=== PATIENT | male | born 1950 | race Caucasian/White ===

== ENCOUNTER 2023-06-20 14:32 | Inpatient (IN) | payer MEDICARE, OTHER ==
[~2023-06-20] VITALS: Ht 175.3 cm; Wt 84.4 kg
[2023-06-20 18:41] VITALS: BP 143/69; TEMP 98; O2SAT 93
[2023-06-20 21:33] VITALS: BP 144/60; TEMP 98.6; O2SAT 99
[2023-06-20 21:36] VITALS: BP 144/60; TEMP 98.6
[2023-06-20] MEDS ORDERED: METO75TA PO (22:25)
[2023-06-20] MEDS ORDERED: FERR325T28 PO (22:25)
[2023-06-20] MEDS ORDERED: DAPA10TA PO (22:25)
[2023-06-20] MEDS ORDERED: [UNRECOGNIZED DRUG - CODE] PO (22:25)
[2023-06-20] MEDS ORDERED: ATOR40TA PO (22:25)
[2023-06-20] MEDS ORDERED: OXYC5CAP18 PO (22:25)
[2023-06-20] MEDS ORDERED: GABA300C PO (22:25)
[2023-06-20] MEDS ORDERED: METF-495 PO (22:25)
[2023-06-20] MEDS ORDERED: CLOP75TA15 PO (22:25)
[2023-06-20] MEDS ORDERED: ASPI81TA31 PO (22:25)
[2023-06-20] MEDS ORDERED: ENOX40DI SQ (22:25)
[2023-06-20] MEDS ORDERED: SITA100T PO (22:25)
[2023-06-20] MEDS ORDERED: CYCL5TAB PO (22:25)
[2023-06-21] MEDS: OXYCODONE/APAP 5-325 MG TABLET PO PRN (01:18)
[2023-06-21 05:44] VITALS: BP 124/66; TEMP 97.8; O2SAT 99
[2023-06-21 05:45] VITALS: BP 124/66; TEMP 97.8; O2SAT 99
[2023-06-21 07:44] VITALS: BP 148/65; TEMP 98.2; O2SAT 94
[2023-06-21] MEDS ORDERED: Medication Not On Formulary EA (Oxycodone Hcl 1 CAP) PO PRN (08:45)
[2023-06-21] MEDS ORDERED: OLMESARTAN MED PO SCH (09:00)
[2023-06-21] MEDS ORDERED: OXYCODONE HCL 5 MG TABLET PO PRN (09:00)
[2023-06-21] MEDS ORDERED: AMLODIPINE BES PO SCH (09:00)
[2023-06-21] MEDS ORDERED: Medication Not On Formulary EA (Cyclobenzaprine Hcl 5 MG) PO SCH (09:00)
[2023-06-21] MEDS ORDERED: SITAGLIPTIN PHOSPHATE PO SCH (09:00)
[2023-06-21] MEDS ORDERED: [UNRECOGNIZED DRUG - OTHER] PO SCH (09:00)
[2023-06-21] MEDS: GABAPENTIN 300 MG CAPSULE PO SCH ×3 (09:35→17:17)
[2023-06-21] MEDS: METOPROLOL TARTRATE 25 MG TABLET PO SCH ×2 (09:35→17:17)
[2023-06-21] MEDS: CYCLOBENZAPRINE HCL 10 MG TABLET PO SCH ×3 (09:36→17:13)
[2023-06-21] MEDS: DAPAGLIFLOZIN PROPANEDIOL 5 MG TABLET PO SCH (09:36)
[2023-06-21] MEDS ORDERED: AMLO1CAP PO (10:14)
[2023-06-21] MEDS: BENAZEPRIL HCL 20 MG TABLET PO SCH (12:38)
[2023-06-21] MEDS: FERROUS SULFATE 325 MG TABEC PO SCH ×2 (12:38→17:13)
[2023-06-21] MEDS: AMLODIPINE 10 MG TABLET PO SCH (12:38)
[2023-06-21] MEDS: ENOXAPARIN SODIUM 30 MG/0.3 ML DISP.SYRIN SQ SCH ×2 (12:39→21:08)
[2023-06-21] MEDS ORDERED: DEXTROSE 50% 50 ML DISP.SYRIN IV PRN (15:15)
[2023-06-21 15:46] VITALS: BP 126/59; TEMP 98.8; O2SAT 94
[2023-06-21] MEDS: CLOPIDOGREL 75 MG TABLET PO SCH (17:13)
[2023-06-21] MEDS: ASPIRIN 81 MG TAB.CHEW PO SCH (17:13)
[2023-06-21] MEDS: ATORVASTATIN 40 MG TABLET PO SCH (17:17)
[2023-06-21] MEDS: INSULIN REGULAR, HUMAN 300 UNIT/3 ML VIAL SQ PRN (17:18)
[2023-06-21] MEDS: BLOOD SUGAR DIAGNOSTIC 1 EACH STRIP VI SCH ×2 (17:20→21:06)
[2023-06-21 20:00] VITALS: BP 128/62; TEMP 98.6
[2023-06-22 05:34] VITALS: BP 148/66; TEMP 98.8; O2SAT 93
[2023-06-22] MEDS: BLOOD SUGAR DIAGNOSTIC 1 EACH STRIP VI SCH ×4 (06:49→20:16)
[2023-06-22 08:04] VITALS: BP 142/67; TEMP 98.7; O2SAT 99
[2023-06-22] MEDS: ENOXAPARIN SODIUM 30 MG/0.3 ML DISP.SYRIN SQ SCH ×2 (08:36→20:21)
[2023-06-22] MEDS: CYCLOBENZAPRINE HCL 10 MG TABLET PO SCH ×3 (08:36→17:32)
[2023-06-22] MEDS: GABAPENTIN 300 MG CAPSULE PO SCH ×3 (08:36→17:32)
[2023-06-22] MEDS: FERROUS SULFATE 325 MG TABEC PO SCH ×3 (08:37→17:32)
[2023-06-22] MEDS: METFORMIN XR 500 MG TAB.SR.24H PO SCH (08:37)
[2023-06-22] MEDS: DAPAGLIFLOZIN PROPANEDIOL 5 MG TABLET PO SCH (08:37)
[2023-06-22] MEDS: METOPROLOL TARTRATE 25 MG TABLET PO SCH ×2 (08:47→17:37)
[2023-06-22] MEDS: BENAZEPRIL HCL 20 MG TABLET PO SCH (08:48)
[2023-06-22] MEDS: AMLODIPINE 10 MG TABLET PO SCH (08:49)
[2023-06-22] MEDS: GLUCERNA SHAKE 237 ML CAN PO SCH (09:00)
[2023-06-22 11:43] VITALS: BP 121/61; TEMP 98.7; O2SAT 20
[2023-06-22] MEDS: INSULIN REGULAR, HUMAN 300 UNIT/3 ML VIAL SQ PRN ×3 (12:54→20:17)
[2023-06-22 15:30] VITALS: BP 115/71; TEMP 98.4; O2SAT 93
[2023-06-22] MEDS: ATORVASTATIN 40 MG TABLET PO SCH (17:32)
[2023-06-22] MEDS: CLOPIDOGREL 75 MG TABLET PO SCH (17:32)
[2023-06-22] MEDS: ASPIRIN 81 MG TAB.CHEW PO SCH (17:32)
[2023-06-22 22:47] VITALS: BP 125/61; TEMP 98.2; O2SAT 96
[2023-06-23 05:04] VITALS: BP 137/54; TEMP 97.8; O2SAT 98
[2023-06-23] MEDS: BLOOD SUGAR DIAGNOSTIC 1 EACH STRIP VI SCH ×4 (06:17→21:00)
[2023-06-23 07:46] VITALS: BP 131/62; TEMP 98; O2SAT 96
[2023-06-23 08:00] VITALS: BP 121/79; TEMP 98.4; O2SAT 98
[2023-06-23] MEDS: METFORMIN XR 500 MG TAB.SR.24H PO SCH (08:51)
[2023-06-23] MEDS: FERROUS SULFATE 325 MG TABEC PO SCH ×3 (08:51→17:16)
[2023-06-23] MEDS: JANUVIA 100 MG PO SCH (08:58)
[2023-06-23] MEDS: AMLODIPINE 10 MG TABLET PO SCH (08:58)
[2023-06-23] MEDS: CYCLOBENZAPRINE HCL 10 MG TABLET PO SCH ×3 (08:59→17:16)
[2023-06-23] MEDS: GABAPENTIN 300 MG CAPSULE PO SCH ×3 (09:00→17:17)
[2023-06-23] MEDS: METOPROLOL TARTRATE 25 MG TABLET PO SCH ×2 (09:01→17:16)
[2023-06-23] MEDS: GLUCERNA SHAKE 237 ML CAN PO SCH (09:01)
[2023-06-23] MEDS: BENAZEPRIL HCL 20 MG TABLET PO SCH (09:01)
[2023-06-23] MEDS: DAPAGLIFLOZIN PROPANEDIOL 5 MG TABLET PO SCH (09:01)
[2023-06-23] MEDS: ENOXAPARIN SODIUM 30 MG/0.3 ML DISP.SYRIN SQ SCH ×2 (09:35→22:14)
[2023-06-23 15:22] VITALS: BP 128/75; TEMP 98.2; O2SAT 96
[2023-06-23] MEDS: CLOPIDOGREL 75 MG TABLET PO SCH (17:17)
[2023-06-23] MEDS: ASPIRIN 81 MG TAB.CHEW PO SCH (17:17)
[2023-06-23] MEDS: ATORVASTATIN 40 MG TABLET PO SCH (17:17)
[2023-06-23 20:31] VITALS: BP 135/58; TEMP 98; O2SAT 93
[2023-06-24 04:00] VITALS: BP 130/57; TEMP 98.2; O2SAT 93
[2023-06-24] MEDS: BLOOD SUGAR DIAGNOSTIC 1 EACH STRIP VI SCH ×4 (07:32→21:14)
[2023-06-24 08:00] VITALS: BP 148/71; TEMP 97.7; O2SAT 96
[2023-06-24] MEDS: FERROUS SULFATE 325 MG TABEC PO SCH ×3 (08:54→17:33)
[2023-06-24] MEDS: METOPROLOL TARTRATE 25 MG TABLET PO SCH ×2 (08:56→17:36)
[2023-06-24] MEDS: BENAZEPRIL HCL 20 MG TABLET PO SCH (08:57)
[2023-06-24] MEDS: GABAPENTIN 300 MG CAPSULE PO SCH ×3 (08:57→17:36)
[2023-06-24] MEDS: AMLODIPINE 10 MG TABLET PO SCH (08:57)
[2023-06-24] MEDS: CYCLOBENZAPRINE HCL 10 MG TABLET PO SCH ×3 (08:58→17:33)
[2023-06-24] MEDS: INSULIN REGULAR, HUMAN 300 UNIT/3 ML VIAL SQ PRN ×3 (08:59→21:14)
[2023-06-24] MEDS: ENOXAPARIN SODIUM 30 MG/0.3 ML DISP.SYRIN SQ SCH (09:00)
[2023-06-24] MEDS: METFORMIN XR 500 MG TAB.SR.24H PO SCH (09:02)
[2023-06-24] MEDS: DAPAGLIFLOZIN PROPANEDIOL 5 MG TABLET PO SCH (09:03)
[2023-06-24] MEDS: GLUCERNA SHAKE 237 ML CAN PO SCH (09:04)
[2023-06-24] MEDS: JANUVIA 100 MG PO SCH (09:05)
[2023-06-24 11:29] VITALS: BP 129/56; TEMP 98.8; O2SAT 97
[2023-06-24 15:34] VITALS: BP 109/47; TEMP 98.5; O2SAT 95
[2023-06-24] MEDS: ATORVASTATIN 40 MG TABLET PO SCH (17:33)
[2023-06-24] MEDS: CLOPIDOGREL 75 MG TABLET PO SCH (17:33)
[2023-06-24] MEDS: ASPIRIN 81 MG TAB.CHEW PO SCH (17:33)
[2023-06-24 20:34] VITALS: BP 111/82; TEMP 98.1; O2SAT 95
[2023-06-25 04:18] VITALS: BP 107/49; TEMP 98.2; O2SAT 93
[2023-06-25] MEDS: BLOOD SUGAR DIAGNOSTIC 1 EACH STRIP VI SCH ×4 (06:23→20:38)
[2023-06-25] MEDS: INSULIN REGULAR, HUMAN 300 UNIT/3 ML VIAL SQ PRN ×4 (07:21→20:42)
[2023-06-25 07:22] VITALS: BP 119/60; TEMP 98; O2SAT 98
[2023-06-25] MEDS: GABAPENTIN 300 MG CAPSULE PO SCH ×3 (08:03→16:10)
[2023-06-25] MEDS: METOPROLOL TARTRATE 25 MG TABLET PO SCH ×2 (08:03→16:10)
[2023-06-25] MEDS: CYCLOBENZAPRINE HCL 10 MG TABLET PO SCH ×3 (08:03→16:10)
[2023-06-25] MEDS: FERROUS SULFATE 325 MG TABEC PO SCH ×3 (08:03→16:10)
[2023-06-25] MEDS: BENAZEPRIL HCL 20 MG TABLET PO SCH (08:03)
[2023-06-25] MEDS: METFORMIN XR 500 MG TAB.SR.24H PO SCH (08:04)
[2023-06-25] MEDS: JANUVIA 100 MG PO SCH (08:04)
[2023-06-25] MEDS: DAPAGLIFLOZIN PROPANEDIOL 5 MG TABLET PO SCH (08:04)
[2023-06-25] MEDS: AMLODIPINE 10 MG TABLET PO SCH (08:08)
[2023-06-25] MEDS: ENOXAPARIN SODIUM 40 MG/0.4 ML DISP.SYRIN SQ SCH (08:10)
[2023-06-25] MEDS: GLUCERNA SHAKE 237 ML CAN PO SCH (09:00)
[2023-06-25 15:58] VITALS: BP 121/52; TEMP 98.8; O2SAT 96
[2023-06-25] MEDS: ASPIRIN 81 MG TAB.CHEW PO SCH (17:03)
[2023-06-25] MEDS: ATORVASTATIN 40 MG TABLET PO SCH (17:05)
[2023-06-25] MEDS: CLOPIDOGREL 75 MG TABLET PO SCH (17:05)
[2023-06-25 20:47] VITALS: BP 125/52; TEMP 98.3
[2023-06-26 05:45] VITALS: BP 140/68; TEMP 98.4; O2SAT 94
[2023-06-26] MEDS: BLOOD SUGAR DIAGNOSTIC 1 EACH STRIP VI SCH ×4 (06:40→20:38)
[2023-06-26 07:37] LABS: CALCIUM 8.9 mg/dL (8.5-10.1); CREATININE 0.8 mg/dL (0.6-1.3); MAGNESIUM 1.9 mg/dL (1.8-2.4); PHOSPHOROUS 3.5 mg/dL (2.5-4.9); POTASSIUM 3.5 mmol/L (3.5-5.1)
[2023-06-26 07:43] VITALS: BP 136/64; TEMP 98.7; O2SAT 94
[2023-06-26 07:50] LABS: BASOPHILS # (AUTO) 0.1 K/UL (0.0-0.2); DIFFERENTIAL COMMENT 0; EOSINOPHILS # (AUTO) 0.3 K/uL (0.0-0.7); EOSINOPHILS % (AUTO) 3.2 % (0.0-7.0); HEMATOCRIT 29.4 % (36.7-47.1); HEMOGLOBIN 10.1 g/dL (12.5-16.3); LYMPHOCYTES % (AUTO) 21.4 % (20.5-51.5); MEAN CORPUSCULAR HEMOGLOBIN 30.8 uug (23.8-33.4); MEAN CORPUSCULAR HGB CONC 34 g/dL (32.5-36.3); MEAN CORPUSCULAR VOLUME 89.9 fL (73.0-96.2); MONOCYTES # (AUTO) 0.8 K/uL (0.1-1.30); MONOCYTES % (AUTO) 8.6 % (0.0-11.0); NEUTROPHILS # (AUTO) 6.2 K/uL (1.8-8.9); NEUTROPHILS % (AUTO) 65.8 % (38.5-71.5); PLATELET COUNT (AUTO) 512 K/uL (152-348); RED BLOOD CELL COUNT(AUTO) 3.27 MIL/uL (4.06-5.63); RED CELL DISTRIBUTION WIDTH 15.4 % (12.1-16.2); WHITE BLOOD COUNT (AUTO) 9.4 K/uL (3.6-10.2)
[2023-06-26] MEDS: GABAPENTIN 300 MG CAPSULE PO SCH ×3 (09:05→17:44)
[2023-06-26] MEDS: BENAZEPRIL HCL 20 MG TABLET PO SCH (09:05)
[2023-06-26] MEDS: METOPROLOL TARTRATE 25 MG TABLET PO SCH ×2 (09:05→17:44)
[2023-06-26] MEDS: FERROUS SULFATE 325 MG TABEC PO SCH ×3 (09:05→17:44)
[2023-06-26] MEDS: CYCLOBENZAPRINE HCL 10 MG TABLET PO SCH ×3 (09:06→17:45)
[2023-06-26] MEDS: AMLODIPINE 10 MG TABLET PO SCH (09:06)
[2023-06-26] MEDS: DAPAGLIFLOZIN PROPANEDIOL 5 MG TABLET PO SCH (09:07)
[2023-06-26] MEDS: JANUVIA 100 MG PO SCH (09:07)
[2023-06-26] MEDS: METFORMIN XR 500 MG TAB.SR.24H PO SCH (09:07)
[2023-06-26] MEDS: GLUCERNA SHAKE 237 ML CAN PO SCH (09:08)
[2023-06-26] MEDS: ENOXAPARIN SODIUM 40 MG/0.4 ML DISP.SYRIN SQ SCH (09:16)
[2023-06-26] MEDS: INSULIN REGULAR, HUMAN 300 UNIT/3 ML VIAL SQ PRN ×3 (12:08→20:38)
[2023-06-26 16:00] VITALS: BP 111/43; TEMP 98.5; O2SAT 92
[2023-06-26] MEDS: CLOPIDOGREL 75 MG TABLET PO SCH (17:44)
[2023-06-26] MEDS: ATORVASTATIN 40 MG TABLET PO SCH (17:44)
[2023-06-26] MEDS: ASPIRIN 81 MG TAB.CHEW PO SCH (17:44)
[2023-06-26 20:00] VITALS: BP 110/59; TEMP 98.5; O2SAT 95
[2023-06-27 04:19] VITALS: BP 124/60; TEMP 98.3; O2SAT 94
[2023-06-27] MEDS: BLOOD SUGAR DIAGNOSTIC 1 EACH STRIP VI SCH ×4 (06:30→20:54)
[2023-06-27 07:46] VITALS: BP 123/60; TEMP 98.7; O2SAT 94
[2023-06-27] MEDS: INSULIN REGULAR, HUMAN 300 UNIT/3 ML VIAL SQ PRN ×4 (07:52→20:56)
[2023-06-27] MEDS: FERROUS SULFATE 325 MG TABEC PO SCH ×3 (08:48→16:34)
[2023-06-27] MEDS: OXYCODONE/APAP 5-325 MG TABLET PO PRN (08:48)
[2023-06-27] MEDS: GABAPENTIN 300 MG CAPSULE PO SCH ×3 (08:48→16:34)
[2023-06-27] MEDS: GLUCERNA SHAKE 237 ML CAN PO SCH (08:49)
[2023-06-27] MEDS: AMLODIPINE 10 MG TABLET PO SCH (08:51)
[2023-06-27] MEDS: METOPROLOL TARTRATE 25 MG TABLET PO SCH ×2 (08:51→16:43)
[2023-06-27] MEDS: ENOXAPARIN SODIUM 40 MG/0.4 ML DISP.SYRIN SQ SCH (08:51)
[2023-06-27] MEDS: BENAZEPRIL HCL 20 MG TABLET PO SCH (08:52)
[2023-06-27] MEDS: CYCLOBENZAPRINE HCL 10 MG TABLET PO SCH ×3 (08:55→16:34)
[2023-06-27] MEDS: JANUVIA 100 MG PO SCH (08:55)
[2023-06-27] MEDS: METFORMIN XR 500 MG TAB.SR.24H PO SCH (08:55)
[2023-06-27] MEDS: DAPAGLIFLOZIN PROPANEDIOL 5 MG TABLET PO SCH (08:57)
[2023-06-27 15:57] VITALS: BP 94/47; TEMP 98.2; O2SAT 95
[2023-06-27] MEDS: ATORVASTATIN 40 MG TABLET PO SCH (16:40)
[2023-06-27] MEDS: CLOPIDOGREL 75 MG TABLET PO SCH (16:40)
[2023-06-27] MEDS: ASPIRIN 81 MG TAB.CHEW PO SCH (16:40)
[2023-06-27 19:50] VITALS: BP_SYST 108; BP_SYST 133; BP_DIAS 48; BP_DIAS 60; TEMP 98.1; TEMP 98.7; O2SAT 97; O2SAT 98
[2023-06-28 04:00] VITALS: BP 115/62; TEMP 98.4; O2SAT 98
[2023-06-28] MEDS: BLOOD SUGAR DIAGNOSTIC 1 EACH STRIP VI SCH ×2 (06:34→11:42)
[2023-06-28 07:53] VITALS: BP 134/62; TEMP 98.6; O2SAT 98
[2023-06-28] MEDS: METOPROLOL TARTRATE 25 MG TABLET PO SCH (08:55)
[2023-06-28] MEDS: FERROUS SULFATE 325 MG TABEC PO SCH ×2 (08:55→12:26)
[2023-06-28] MEDS: GABAPENTIN 300 MG CAPSULE PO SCH ×2 (08:55→12:26)
[2023-06-28] MEDS: BENAZEPRIL HCL 20 MG TABLET PO SCH (08:55)
[2023-06-28 08:56] VITALS: BP 134/62
[2023-06-28] MEDS: CYCLOBENZAPRINE HCL 10 MG TABLET PO SCH ×2 (08:56→12:26)
[2023-06-28] MEDS: DAPAGLIFLOZIN PROPANEDIOL 5 MG TABLET PO SCH (08:56)
[2023-06-28] MEDS: AMLODIPINE 10 MG TABLET PO SCH (08:56)
[2023-06-28] MEDS: METFORMIN XR 500 MG TAB.SR.24H PO SCH (08:57)
[2023-06-28] MEDS: GLUCERNA SHAKE 237 ML CAN PO SCH (08:57)
[2023-06-28] MEDS: JANUVIA 100 MG PO SCH (08:57)
[2023-06-28] MEDS: ENOXAPARIN SODIUM 40 MG/0.4 ML DISP.SYRIN SQ SCH (08:59)
[2023-06-28] MEDS: INSULIN REGULAR, HUMAN 300 UNIT/3 ML VIAL SQ PRN (11:44)
== END 2023-06-28 17:25 | disposition home health service (06) | DRG 561 ==
PROVIDERS: ADMIT Physical Medicine & Rehabilitation Pain Medicine; ATTEND Physical Medicine & Rehabilitation Pain Medicine
DX: Z47.81 Encounter for orthopedic aftercare following surgical amputation (principal); Z89.512 Acquired absence of left leg below knee; S87.82XD Crushing injury of left lower leg, subsequent encounter; E11.9 Type 2 diabetes mellitus without complications; E78.5 Hyperlipidemia, unspecified; I10 Essential (primary) hypertension; I25.10 Atherosclerotic heart disease of native coronary artery without angina pectoris; S42.001D Fracture of unspecified part of right clavicle, subsequent encounter for fracture with routine healing; Z95.1 Presence of aortocoronary bypass graft; X58.XXXD Exposure to other specified factors, subsequent encounter; E11.51 Type 2 diabetes mellitus with diabetic peripheral angiopathy without gangrene
CPT/HCPCS: 36415; 83735; 84100; 85025; A4663; J1650; J1815